=== PATIENT | male | born 1980 | race African-American/Black ===

== ENCOUNTER 2018-02-14 17:15 | Emergency (ER) | payer SELFPAY ==
[~2018-02-14] VITALS: Ht 170.2 cm; Wt 80.0 kg
[2018-02-14] MEDS ORDERED: BACITRACIN ZINC OINT UDPKT TOP ONE (21:00)
[2018-02-14 22:00] VITALS: BP 103/70
== END 2018-02-14 22:23 | disposition home or self-care (01) ==
LOC: ER 18:49
DX: S51.811A Laceration without foreign body of right forearm, initial encounter (principal); S81.811A Laceration without foreign body, right lower leg, initial encounter; S91.311A Laceration without foreign body, right foot, initial encounter; S91.312A Laceration without foreign body, left foot, initial encounter; S80.812A Abrasion, left lower leg, initial encounter; S80.811A Abrasion, right lower leg, initial encounter; W25.XXXA Contact with sharp glass, initial encounter; Y93.E1 Activity, personal bathing and showering; Y92.012 Bathroom of single-family (private) house as the place of occurrence of the external cause; R03.0 Elevated blood-pressure reading, without diagnosis of hypertension
CPT/HCPCS: 99283

== ENCOUNTER 2018-04-08 01:04 | Emergency (ER) | payer MEDICAID ==
[~2018-04-08] VITALS: Ht 170.2 cm; Wt 82.0 kg
[2018-04-08] MEDS ORDERED: MORPHINE SULFATE 4 MG/ML CPJ (NOT FOR IM USE) IV STA (04:33)
[2018-04-08] MEDS ORDERED: ONDANSETRON HCL 4MG/2ML VIAL IV STA (04:33)
[2018-04-08] MEDS ORDERED: SODIUM CHLORIDE 0.9% 1,000 ML IV ONE (04:33)
[2018-04-08 07:51] VITALS: BP 125/77
== END 2018-04-08 07:57 | disposition home or self-care (01) ==
LOC: ER 01:04
DX: S00.83XA Contusion of other part of head, initial encounter (principal); S20.219A Contusion of unspecified front wall of thorax, initial encounter; S63.509A Unspecified sprain of unspecified wrist, initial encounter; Y08.89XA Assault by other specified means, initial encounter; Y93.9 Activity, unspecified; Y92.9 Unspecified place or not applicable; Z88.6 Allergy status to analgesic agent; Z88.0 Allergy status to penicillin
CPT/HCPCS: 70450; 70486; 71250; 72125; 73110; 73130; 96361; 96374; 96375; 99285; J2270; J2405; J7030

== ENCOUNTER 2018-04-20 11:54 | Emergency (ER) | payer MEDICAID ==
[~2018-04-20] VITALS: Ht 170.2 cm; Wt 80.8 kg
[2018-04-20 12:31] VITALS: BP 132/79
[2018-04-20] MEDS ORDERED: ACETAMINOPHEN 500MG TABLET PO ONE (15:15)
== END 2018-04-20 17:07 | disposition home or self-care (01) ==
LOC: ER 11:54
DX: S06.0X1A Concussion with loss of consciousness of 30 minutes or less, initial encounter (principal); M79.642 Pain in left hand; Y08.89XA Assault by other specified means, initial encounter; Y93.89 Activity, other specified; Y92.89 Other specified places as the place of occurrence of the external cause; Y99.8 Other external cause status; Z88.0 Allergy status to penicillin; Z88.6 Allergy status to analgesic agent; Z87.820 Personal history of traumatic brain injury
CPT/HCPCS: 70450; 73130; 99284